=== PATIENT | male | born 1965 | race Caucasian/White ===

== ENCOUNTER 2017-10-13 08:40 | Emergency (ER) | payer SELFPAY | END 2017-10-13 09:28 | disposition home or self-care (01) | LOC: ERS 08:40 | DX: L98.8 Other specified disorders of the skin and subcutaneous tissue (principal); F20.9 Schizophrenia, unspecified; Z79.899 Other long term (current) drug therapy | CPT/HCPCS: 99283 ==

== ENCOUNTER 2018-05-02 08:23 | Emergency (ER) | payer SELFPAY ==
[2018-05-02] MEDS ORDERED: Ketorolac Tromethamine 30 MG/ML VIAL ONE (08:48)
[2018-05-02 09:16] LABS: #Basophils 0.1 thou/uL (0.0-0.2); #Eosinphils 0.4 thou/uL (0.0-0.7); #Lymphocytes 1.6 thou/uL (1.20-3.40); #Monocytes 0.5 thou/uL (0.11-0.59); #Neutrophils 3.2 thou/uL (1.40-6.50); %Basophils 1.5 % (0.0-1.0); %Eosinophils 6.1 % (0.0-10.0); %Lymphocytes 27.8 % (21.0-51.0); %Monocytes 8.8 % (0.0-10.0); %Neutrophils 55.8 % (42.0-75.0); Hemoglobin 16.4 g/dL (14.0-18.0); Mean Corpuscular HGB CONC 33.5 g/dL (32.0-36.0); Mean Corpuscular Hemoglobin 31.5 pg (27.0-31.0); Mean Platelet Volume 7.4 fL (7.4-10.4); Platelet Count 187 thou/uL (130-400); RBC Distribution Width 12.5 % (11.5-14.5); White Blood Cell (WBC) Count 5.8 thou/uL (4.8-10.8)
[2018-05-02 09:32] LABS: Anion Gap 12 mmol/L (10-20); BUN (Urea Nitrogen) 15 mg/dL (8.4-25.7); Calc. Creatinine Clearance 0 mL/min (70-130); Calcium 9.3 mg/dL (7.8-10.44); Carbon Dioxide 22 mmol/L (22-29); Chloride 108 mmol/L (98-107); Estimated GFR-MDRD 63; Glucose 112 mg/dL (70-105); Potassium 4.1 mmol/L (3.5-5.1); Sodium 138 mmol/L (136-145)
[2018-05-02] MEDS ORDERED: CEFAZOLIN 1 GM VIAL ONE (09:47)
== END 2018-05-02 10:47 | disposition home or self-care (01) ==
LOC: ERS 08:23
DX: L03.115 Cellulitis of right lower limb (principal)
CPT/HCPCS: 80048; 85025; 85379; 85652; 96365; 96375; J0690; J1885

== ENCOUNTER 2018-05-28 05:41 | Emergency (ER) | payer SELFPAY ==
[2018-05-28] MEDS ORDERED: Ketorolac Tromethamine 60 MG/2 ML VIAL ONE (06:08)
--- NOTE | 2018-05-28 08:35 | RAD ---
RADIOGRAPH RIGHT LEG TIBIA AND FIBULA 2 VIEWS: Date: 05/28/18 Time: 0538 hours HISTORY: 53-year-old male with right leg pain. FINDINGS: No fracture, periostitis, or destructive osseous lesion involving the tibia or fibula. There are irre gularly shaped, faint soft tissue densities throughout the subcutaneous adipose tissues. No interval change compared to 11/26/16. IMPRESSION: 1. No osseous abnormalities of the tibia or fibula. 2. 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 Recommend correlation with superf icial venous Doppler ultrasound. POS: [facility]
== END 2018-05-28 06:51 | disposition home or self-care (01) ==
LOC: ERS 05:41
DX: I83.91 Asymptomatic varicose veins of right lower extremity (principal)
CPT/HCPCS: 96372; J1885

== ENCOUNTER 2019-09-04 20:22 | Emergency (ER) | payer SELFPAY | END 2019-09-04 21:30 | disposition home or self-care (01) | LOC: SCSER 20:22 | DX: I83.019 Varicose veins of right lower extremity with ulcer of unspecified site (principal); L03.115 Cellulitis of right lower limb; I10 Essential (primary) hypertension; F31.9 Bipolar disorder, unspecified; F20.9 Schizophrenia, unspecified; Z87.442 Personal history of urinary calculi | CPT/HCPCS: 99282 ==

== ENCOUNTER 2019-11-20 17:17 | Emergency (ER) | payer SELFPAY | END 2019-11-20 17:58 | disposition home or self-care (01) | LOC: ERS 17:17 | DX: S50.812A Abrasion of left forearm, initial encounter (principal); S50.811A Abrasion of right forearm, initial encounter; L30.9 Dermatitis, unspecified; Z87.442 Personal history of urinary calculi; F20.9 Schizophrenia, unspecified; X58.XXXA Exposure to other specified factors, initial encounter | CPT/HCPCS: 99282 ==

== ENCOUNTER 2020-03-28 08:57 | Emergency (ER) | payer SELFPAY | END 2020-03-28 09:50 | disposition home or self-care (01) | LOC: ERS 08:57 | DX: L30.9 Dermatitis, unspecified (principal); F20.9 Schizophrenia, unspecified; Z87.442 Personal history of urinary calculi | CPT/HCPCS: 99281 ==

== ENCOUNTER 2020-04-11 22:24 | Emergency (ER) | payer SELFPAY | END 2020-04-11 23:51 | disposition home or self-care (01) | LOC: ERS 22:24 | DX: Z48.817 Encounter for surgical aftercare following surgery on the skin and subcutaneous tissue (principal); I10 Essential (primary) hypertension; F20.9 Schizophrenia, unspecified | CPT/HCPCS: 99281 ==

== ENCOUNTER 2020-05-05 01:08 | Emergency (ER) | payer SELFPAY | END 2020-05-05 01:33 | disposition home or self-care (01) | LOC: ERS 01:08 | DX: L98.9 Disorder of the skin and subcutaneous tissue, unspecified (principal); I10 Essential (primary) hypertension; F20.9 Schizophrenia, unspecified | CPT/HCPCS: 99281 ==

== ENCOUNTER 2024-05-07 07:14 | Day surgery (SDC) | payer SELFPAY ==
[2024-05-06 16:00] VITALS: BMI 30.1
[2024-05-07] MEDS ORDERED: CEFAZOLIN 2 GM VIAL ONE (07:41)
[2024-05-07] MEDS ORDERED: Sodium Chloride 0.9% 100 ML ONE (07:41)
[2024-05-07] MEDS ORDERED: fentaNYL 50 mcg/mL 1 mL Vial ONE ×6 (08:53→11:25)
[2024-05-07] MEDS ORDERED: Midazolam HCl 2 mg/2 ml Vial ONE (08:54)
[2024-05-07] MEDS ORDERED: Bupivacaine PF 0.5% 30 ML VIAL ONE ×2 (08:55→11:25)
[2024-05-07] MEDS ORDERED: Lidocaine 1% PF 5 ML VIAL ONE (08:56)
[2024-05-07] MEDS ORDERED: Ondansetron PF 4 MG/2 ML Vial ONE ×2 (08:56→09:13)
[2024-05-07] MEDS ORDERED: PROPOFOL 20 ML ONE (08:56)
[2024-05-07] MEDS ORDERED: Dexamethasone 4 mg/ml Vial ONE (09:13)
[2024-05-07] MEDS ORDERED: Esmolol 100 MG/10 ML VIAL ONE (09:42)
[2024-05-07] MEDS ORDERED: fentaNYL PF 100 MCG/2 ML SYRINGE ONE (09:52)
== END 2024-05-07 15:56 | disposition home or self-care (01) ==
LOC: SDC 07:14
PROVIDERS: ATTEND Orthopaedic Surgery
DX: S82.841A Displaced bimalleolar fracture of right lower leg, initial encounter for closed fracture (principal); I10 Essential (primary) hypertension; Z98.890 Other specified postprocedural states; W19.XXXA Unspecified fall, initial encounter; F17.200 Nicotine dependence, unspecified, uncomplicated
CPT/HCPCS: C1713; C1874; J0665; J1100; J2250; J2405; J2704; J3010